=== PATIENT | female | born 1965 | race Caucasian/White ===

== ENCOUNTER 2023-11-07 15:02 | Emergency (ER) | payer OTHER ==
[~2023-11-07] VITALS: Ht 167.6 cm; Wt 60.3 kg
[2023-11-07 16:51] VITALS: BP 132/77; O2SAT 100
== END 2023-11-07 16:50 | disposition home or self-care (01) ==
LOC: ER 15:03
DX: F41.9 Anxiety disorder, unspecified (principal); G47.00 Insomnia, unspecified; F19.239 Other psychoactive substance dependence with withdrawal, unspecified; Z88.1 Allergy status to other antibiotic agents
CPT/HCPCS: A4606; A4663

== ENCOUNTER 2023-11-15 00:54 | Inpatient (IN) | payer OTHER ==
[~2023-11-15] VITALS: Ht 167.6 cm; Wt 60.8 kg
[2023-11-15 02:44] LABS: BASOPHILS # (AUTO) 0.1 K/UL (0.0-0.2); BASOPHILS % (AUTO) 0.7 % (0.0-2.0); EOSINOPHILS # (AUTO) 0.2 K/uL (0.0-0.7); EOSINOPHILS % (AUTO) 1.4 % (0.0-7.0); HEMATOCRIT 38.4 % (31.2-41.9); LYMPHOCYTES # (AUTO) 3.6 K/uL (0.8-4.8); LYMPHOCYTES % (AUTO) 26.1 % (20.5-51.5); MEAN CORPUSCULAR HEMOGLOBIN 31.3 uug (24.7-32.8); MEAN CORPUSCULAR HGB CONC 34 g/dL (32.3-35.6); MEAN CORPUSCULAR VOLUME 92.4 fL (75.5-95.3); MONOCYTES # (AUTO) 1.1 K/uL (0.1-1.30); MONOCYTES % (AUTO) 7.9 % (0.0-11.0); NEUTROPHILS # (AUTO) 8.9 K/uL (1.8-8.9); NEUTROPHILS % (AUTO) 63.9 % (38.5-71.5); PLATELET COUNT (AUTO) 375 K/uL (179-408); RED BLOOD CELL COUNT(AUTO) 4.16 MIL/uL (3.63-4.92); WHITE BLOOD COUNT (AUTO) 13.9 K/uL (3.8-11.8)
[2023-11-15 02:49] LABS: DIFFERENTIAL COMMENT 1
[2023-11-15 02:59] LABS: MAGNESIUM 2.1 mg/dL (1.8-2.4)
[2023-11-15 03:00] LABS: CALCIUM 9.2 mg/dL (8.5-10.1); CARBON DIOXIDE 28 mmol/L (21-32); CHLORIDE 104 mmol/L (98-107); CREATININE 0.7 mg/dL (0.6-1.3); GLUCOSE 95 mg/dL (74-106); POTASSIUM 3.2 mmol/L (3.5-5.1); SODIUM SERUM 141 mmol/L (136-145); UREA NITROGEN, BLOOD 17 mg/dL (7-18)
[2023-11-15 03:14] LABS: ALANINE AMINOTRANSFERASE 30 U/L (14-59); ALBUMIN 3.9 g/dL (3.4-5.0); ALKALINE PHOSPHATASE 83 U/L (50-136); ASPARTATE AMINOTRANSFERASE 11 U/L (15-37); BILIRUBIN,DIRECT 0.1 mg/dL (0.0-0.2); BILIRUBIN,TOTAL 0.4 mg/dL (0.2-1.0); NT-PRO BNP 56 pg/mL (0-125); TOTAL PROTEIN, SERUM 7.7 g/dL (6.4-8.2)
[2023-11-15 03:21] LABS: THYROID STIMULATING HORMONE 4.418 mIU/mL (0.358-3.740)
[2023-11-15] MEDS ORDERED: ACETAMINOPHEN 325 MG TABLET PO PRN (03:30)
[2023-11-15] MEDS ORDERED: REMEDY ESSENTIAL ZINC PASTE 113 GM TP PRN (03:30)
[2023-11-15] MEDS ORDERED: ONDANSETRON 4 MG/2 ML VIAL IV PRN (03:30)
[2023-11-15] MEDS ORDERED: MAGNESIUM HYDROXIDE 30 ML LIQUID UDC PO PRN (03:30)
[2023-11-15] MEDS ORDERED: LORAZEPAM 2 MG/1 ML VIAL ONE (04:05)
[2023-11-15] MEDS: LORAZEPAM 2 MG/1 ML VIAL IV ONE (04:31)
[2023-11-15] MEDS ORDERED: POTASSIUM CHLORIDE 20 MEQ POWDER PACKET GT ONE (07:45)
[2023-11-15] MEDS: POTASSIUM CHLORIDE 20 MEQ TAB.PRT.SR PO ONE (07:59)
[2023-11-15 09:19] VITALS: BP 139/77; TEMP 98.2; O2SAT 97
[2023-11-15] MEDS ORDERED: ALPRAZOLAM 0.5 MG TABLET PO PRN (11:00)
== END 2023-11-15 13:20 | disposition home or self-care (01) | DRG 310 ==
LOC: ER 00:57 → TELE3 03:33
PROVIDERS: ADMIT Nurse Practitioner Acute Care; ATTEND Internal Medicine
DX: I49.1 Atrial premature depolarization (principal); I49.8 Other specified cardiac arrhythmias; I10 Essential (primary) hypertension; E87.6 Hypokalemia; G47.30 Sleep apnea, unspecified; E03.9 Hypothyroidism, unspecified; F41.9 Anxiety disorder, unspecified; R42 Dizziness and giddiness; Z82.49 Family history of ischemic heart disease and other diseases of the circulatory system; Z88.6 Allergy status to analgesic agent
CPT/HCPCS: 36415; 71045; 83735; 84443; 84484; 85025; 93005; A4606; A4663; G0378; J2060